=== PATIENT | male | born 1960 | race Two or more races ===

== ENCOUNTER 2020-05-20 07:15 | Day surgery (SDC) | payer OTHER ==
[~2020-05-20] VITALS: Ht 170.2 cm; Wt 86.2 kg
[2020-05-20] VITALS (12 sets, daily range): BP systolic 128–163; BP diastolic 69–99
[~2020-05-20 07:15] MED LIST: ASPIRIN81 MG ORAL; BUSPIRONE HCL5 M2 ORAL; Clindamycin 600mg/D5W 50ml IV ONE; METFORMIN HCL1000 M1 ORAL; METOPROLOL TART50 M1 ORAL; SIMVASTATIN20 MG ORAL; celeBREX 200mg Cap **SURGERY PATIENTS ONLY ORAL ONE; oxyCONTIN 20mg tab ORAL ONE
--- NOTE | 2020-05-20 07:37 | Operative Note - PDOC ---
Operative Note Operative Note Pre-op Diagnosis: right ankle posttraumactic arthritis Procedure: see op report Post-op Diagnosis: same as pre-op plus Operative Findings: consistent w/pre-op dx studies Anesthesia: regional Specimen: none Complications: none Condition: stable Estimated Blood Loss: none Implant(s) used?: No Wyatt Hahn MD May 20, 2020 07:37
--- NOTE | 2020-05-20 07:37 | Pre-Procedure Note/Attestation ---
Pre-Procedure Note/Attestation Complete Prior to Procedure Planned Procedure: right Procedure Narrative: ankle arthroscopy, possible synvectomy, chondroplasty, possible removal of hardware Indications for Procedure Pre-Operative Diagnosis: right ankle posttraumactic arthritis Attestation I attest that I discussed the nature of the procedure; its benefits; risks and complications; and alternatives (and the risks and benefits of such alternatives), prior to the procedure, with the patient (or the patient's legal agency sales representative). I attest that, if there was a reasonable possibility of needing a blood transfusion, the patient (or the patient's legal agency sales representative) was given the [facility] standardized written summary, pursuant to the [employer] [place] Blood Safety Act ([place] Health and Safety Code # 1645, as amended). I attest that I re-evaluated the patient just prior to the surgery and that there has been no change in the patient's H&P, except as documented below: Wyatt Hahn MD May 20, 2020 07:37
[2020-05-20] MEDS ORDERED: HYDROmorphone 1mg/ml Carpuject SUBQ PRN ×2 (07:45)
[2020-05-20] MEDS ORDERED: HYDROcodone/Acetamin 5/325 tab ORAL PRN ×2 (07:45)
[2020-05-20] MEDS ORDERED: Tylenol #3 tab (300mg/30mg) ORAL PRN ×2 (07:45)
[2020-05-20] MEDS ORDERED: D5 1/2NS 1,000 ML IV SCH ×2 (07:45)
[2020-05-20] MEDS ORDERED: celeBREX 200mg Cap **SURGERY PATIENTS ONLY ORAL ONE (08:41)
[2020-05-20] MEDS ORDERED: oxyCONTIN 20mg tab ORAL ONE (08:41)
[2020-05-20] MEDS ORDERED: Kenalog-40 1ml Vial ONE (09:22)
[2020-05-20] MEDS ORDERED: Duramorph PF 5mg/10ml amp ONE (09:22)
[2020-05-20] MEDS ORDERED: Ketorolac 30mg Inj ONE (09:22)
[2020-05-20] MEDS ORDERED: Bupivacaine 0.5% Inj 30 ml vial INJ ONE (09:22)
[2020-05-20] MEDS ORDERED: NS Irrig 3000ml IRRIG ONE ×3 (09:31→10:05)
[2020-05-20] MEDS ORDERED: fentaNYL 100 mcg/2 mL IV ONE (09:41)
[2020-05-20] MEDS ORDERED: Midazolam 2mg/2ml Inj ONE (09:41)
--- NOTE | 2020-05-20 09:55 | Anethesia Preoperative Eval ---
Anesthesia Pre-op PMH/ROS General Date of Evaluation: May 20, 2020 Time of Evaluation: 09:35 Anesthesiologist: salvador ASA Score: ASA 2 Mallampati Score Class I : Soft palate, uvula, fauces, pillars visible Class II: Soft palate, uvula, fauces visible Class III: Soft palate, base of uvula visible Class IV: Only hard plate visible Mallampati Classification: Class II Surgeon: alberto Diagnosis: failed ankle ORIF Surgical Procedure: Right ankle socpe Anesthesia History: none Family History: no anesthesia problems Allergies: Coded Allergies: PENICILLINS (Verified Allergy, Severe, rash, 12/24/19) Medications: see eMAR Patient NPO?: Yes NPO Date: May 20, 2020 NPO Time: 00:01 Past Medical History Cardiovascular: Reports: HTN, CAD Pulmonary: Denies: asthma, COPD, CED, other Gastrointestinal/Genitourinary: Denies: GERD, CRI, ESRD, other Neurologic/Psychiatric: Denies: dementia, CVA, depression/anxiety, TIA, other Endocrine: Denies: DM, hypothyroidism, steroids, other HEENT: Denies: cataract (L), cataract (R), glaucoma, DIOMEDE (L), DIOMEDE (R), other Hematology/Immune: Denies: anemia, DVT, bleeding disorder, other Musculoskeletal/Integumentary: Reports: OA; Denies: RA, DJD, DDD, edema, other Other: obesity PSxH Narrative: knee surgery Anesthesia Pre-op Phys. Exam Physician Exam Last Vital Signs Date Time Temp Pulse Resp B/P (MAP) Pulse Ox O2 Delivery O2 Flow Rate FiO2 05/20/20 08:19 Room Air 05/20/20 07:38 97.6 60 18 141/75 99 Constitutional: NAD Neurologic: CN 2-12 intact Cardiovascular: RRR Respiratory: CTA Gastrointestinal: S/NT/ND Airway Exam Mallampati Classification 3 Mallampati Score: Class III MO: full Neck: thick TMD: 1fb ROM: full Anesthesia Pre-op A/P Studies Pre-op Studies: EKG - SR Risk Assessment & Plan Assessment: covid neg Plan: LMA /GA Status Change Before Surgery: No Pre-Antibiotics Drug: ancef Given Within 1 Hr of Incision: Yes Time Given: 10:00 Christina Collins CRNA May 20, 2020 09:55
[2020-05-20] MEDS ORDERED: Sterile Water Irrig 1000ml IRRIG ONE (10:00)
[2020-05-20] MEDS ORDERED: LR 1000ml ONE (10:00)
[2020-05-20] MEDS ORDERED: NS Irrig 1000ml ONE (10:00)
[2020-05-20] MEDS ORDERED: Lidocaine 1% MPF 10mg/ml 5ml ONE (10:00)
[2020-05-20] MEDS ORDERED: fentaNYL 100 mcg/2 mL IV PRN (10:00)
[2020-05-20] MEDS ORDERED: Hydromorphone 0.5mg/0.5ml inj IVP PRN (10:00)
[2020-05-20] MEDS ORDERED: Metoclopramide 10mg/2ml Inj ONE (10:04)
[2020-05-20] MEDS ORDERED: Hydrogen Peroxide 473ml Bottle TOPIC ONE (10:17)
--- NOTE | 2020-05-20 11:23 | Immediate Post-Op Evaluation ---
Immediate Post-Op Evalulation Immediate Post-Op Evalulation Procedure: right ankle scope Date of Evaluation: May 20, 2020 Time of Evaluation: 11:20 IV Fluids: 750 Blood Pressure Systolic: 156 Blood Pressure Diastolic: 79 Pulse Rate: 72 Respiratory Rate: 14 O2 Sat by Pulse Oximetry: 99 Temperature (Fahrenheit): 97.7 Nausea: No Vomiting: No Complications none Patient Status: awake, reacts, patent Hydration Status: adequate Drug: ancef Given Within 1 Hr of Incision: Yes Time Given: 10:00 Christina Collins CRNA May 20, 2020 11:23
--- NOTE | 2020-05-20 11:29 | 48 Hour Post Anesthesia Eval ---
Post Anesthesia Evaluation Procedure: right ankle scope Date of Evaluation: May 20, 2020 Time of Evaluation: 11:28 Blood Pressure Systolic: 150 0: 70 Pulse Rate: 67 Respiratory Rate: 14 O2 Sat by Pulse Oximetry: 98 Airway: patent Nausea: No Vomiting: No Hydration Status: adequate Cardiopulmonary Status: stable Mental Status/LOC: patient returned to baseline Post-Anesthesia Complications: none Follow-up care needed: N/A Christina Collins CRNA May 20, 2020 11:29
--- NOTE | 2020-05-20 18:45 | Operative Note - Dictated ---
DATE OF OPERATION: 05/20/2020 PREOPERATIVE DIAGNOSES: 1. Status post ORIF of right ankle fracture-dislocation. 2. Right ankle fracture malunion. 3. Right ankle arthritis. 4. Right ankle painful hardware. 5. Right ankle chondral damage. POSTOPERATIVE DIAGNOSES: 1. Status post ORIF of right ankle fracture-dislocation. 2. Right ankle fracture malunion. 3. Right ankle arthritis. 4. Right ankle painful hardware. 5. Right ankle chondral damage. PROCEDURES: 1. Right ankle diagnostic arthroscopy. 2. Right ankle synovectomy. 3. Right ankle fracture debridement. 4. Open removal of medial malleolar screws x3 through a separate incision. 5. Complex wound closure of medial malleolus incision. SURGEON: Wyatt Hahn MD ANESTHESIA: General. INDICATION FOR PROCEDURE: The patient is an unfortunate 59-year-old gentleman who sustained a traumatic ankle fracture-dislocation. He went on to a malunion with displacement of the medial malleolus as well as the syndesmosis. The patient continued to have pain and failed conservative treatment. We discussed multiple options including leaving it alone. The other option was consideration for tibiotalar fusion. The other option was consideration to perform a right ankle arthroscopy, synovectomy, debridement with removal of the medial malleolar screws. Additionally, the patient had significant adhesions along the medial malleolus due to the skin flaps. I also discussed releasing some of these adhesions to see if some of this pain and motion can improve with a relatively straightforward procedure. Ultimately though he understood that he had posttraumatic arthrosis of the ankle, he should have improvement, but not complete functional recovery and that ultimately he is going to require additional treatment either in the form of ankle fusion or ankle replacement. Risks, limitations, expectations, and complications related to the procedures were discussed in detail. All questions addressed. DESCRIPTION OF PROCEDURE: After informed consent was obtained, the patient was taken to the operating room. The patient was placed under general anesthesia. The right ankle was prepped and draped in a sterile manner. Time-out was performed. Tibialis anterior tendon was identified. Slightly medial to the tibialis anterior tendon, a 25-gauge needle was then placed. Once the position was confirmed, the skin was incised. Blunt dissection down to the subcutaneous tissue and the capsule was performed. Camera was placed in the ankle joint. Once that was done, using an inside-out technique, a 25-gauge needle was then placed into the lateral working gutter. The skin was incised. Blunt dissection through the subcutaneous tissue and the capsule was performed. At this point, there was significant hypertrophic synovial tissue and scar tissue making visualization difficult. Synovectomy and debridement of the anterior joint line into the lateral gutter was performed. Once this was done, the camera was placed in the lateral viewing portal and a synovectomy into the medial gutter was performed. Once adequate visualization of the medial gutter was obtained, the camera was repositioned in the lateral compartment and synovectomy was extended to the anterior portion of the ankle joint with care. There was chondral damage in the tibia with some chondral flaps and these were debrided. Once the synovectomy, debridement, and chondroplasty was completed, the instruments were removed. At this point, the previous medial malleolus incision was marked out. The skin was incised. It was very adhered to the underlying tissue. Care was taken to try and develop as much of the skin flaps as possible. With the subcutaneous adhesions, I kind of dissected carefully proximally and distally around the incision to allow a mobile skin window. Medial malleolus was identified. incision was then made. The 2 screws were identified and removed. The periosteum and deltoid were reapproximated using #2 Vicryl sutures. At this point, attention was turned towards closing the subcutaneous tissue. The skin was approximated using running 3-0 Monocryl suture along with Dermabond. The portal sites for the ankle were closed using nylon sutures. Compression dressing was applied. The patient was awoken and taken to recovery room with stable vital signs. ESTIMATED BLOOD LOSS: None. COMPLICATIONS: None. SPECIMENS: None. IMPLANTS: None. Wyatt Hahn M.D. DR: Elio JOB#: [id number] CC:
== END 2020-05-20 14:15 | disposition home or self-care (01) ==
LOC: SUR 07:15
DX: S82.891P Other fracture of right lower leg, subsequent encounter for closed fracture with malunion (principal); M19.071 Primary osteoarthritis, right ankle and foot; Z88.0 Allergy status to penicillin; I11.9 Hypertensive heart disease without heart failure; I25.10 Atherosclerotic heart disease of native coronary artery without angina pectoris; M19.90 Unspecified osteoarthritis, unspecified site; E66.9 Obesity, unspecified; Z68.29 Body mass index [BMI] 29.0-29.9, adult; T85.848A Pain due to other internal prosthetic devices, implants and grafts, initial encounter; X58.XXXA Exposure to other specified factors, initial encounter; Y92.9 Unspecified place or not applicable
CPT/HCPCS: 20680; 29895; 29897; 94003; J0690; J1885; J2250; J2405; J2704; J2765; J3010; J3301; J3490; J7120; U0004; 94150